=== PATIENT | male | born 1960 | race Caucasian/White ===

== ENCOUNTER 2020-05-31 13:06 | Emergency (ER) | payer OTHER ==
[~2020-05-31] VITALS: Ht 170.2 cm; Wt 76.2 kg
[2020-05-31] MEDS ORDERED: METF-440 PO (13:16)
--- NOTE | 2020-05-31 13:17 | NUR ---
Dr Hitchcock at the bedside for MSE.
--- NOTE | 2020-05-31 13:42 | NUR ---
1st contact with patient, inspector automatic typewriter assumes care. Patient is AOx4, calm, respiration:easy, affected site is elevated with on the gurney ,+ice pack on, pending MD orders
[2020-05-31] MEDS ORDERED: MORPHINE SULFATE 4 MG/1 ML DISP.SYRIN IM ONE (14:15)
[2020-05-31] MEDS ORDERED: MORPHINE SULFATE 4 MG/1 ML DISP.SYRIN ONE (14:30)
--- NOTE | 2020-05-31 15:04 | NUR ---
Patient is for discharge, pending ride/picker feeder from family or [email or web address].
--- NOTE | 2020-05-31 15:08 | NUR ---
Crutches dispensed. Pt instructed on proper use of crutches. Patient able to demonstrate correct use of crutches. Davey wrap on.
--- NOTE | 2020-05-31 15:09 | NUR ---
Patient discharged to home in stable condition. Written and verbal after care instructions given to patient. Patient verbalized understanding & compliance of instructions. Stressed follow up with orthopedic doctor in 2-3 days or return to ER for worsening s/s.
== END 2020-05-31 15:01 | disposition home or self-care (01) ==
LOC: ER 13:06
DX: S93.602A Unspecified sprain of left foot, initial encounter (principal); W31.9XXA Contact with unspecified machinery, initial encounter; Y92.69 Other specified industrial and construction area as the place of occurrence of the external cause; Y99.0 Civilian activity done for income or pay; R03.0 Elevated blood-pressure reading, without diagnosis of hypertension; E11.9 Type 2 diabetes mellitus without complications; Z79.84 Long term (current) use of oral hypoglycemic drugs
CPT/HCPCS: 73630; 96372; 99283; J2270; A4663